=== PATIENT | male | born 2005 | race Caucasian/White ===

== ENCOUNTER 2025-01-27 17:18 | Emergency (ER) | payer BC, OTHER ==
[2025-01-27 17:26] VITALS: BP 122/74; PULSE 110; RESP 18; TEMP 99.3; BMI 23.0
== END 2025-01-27 17:54 | disposition home or self-care (01) ==
LOC: FER 17:18
DX: J02.9 Acute pharyngitis, unspecified (principal); R00.0 Tachycardia, unspecified; R50.9 Fever, unspecified; F41.9 Anxiety disorder, unspecified
CPT/HCPCS: 99283-25